=== PATIENT | male | born 1960 | race African-American/Black ===

== ENCOUNTER 2020-02-10 15:34 | Emergency (ER) | payer BC ==
[~2020-02-10] VITALS: Ht 185.4 cm; Wt 95.0 kg
[2020-02-10 16:49] LABS: HEMOGLOBIN. 15.8 g/dL (14.0-18.0); MEAN CORPUSCULAR HEMOGLOBIN 32.1 pg (28.0-32.0); MEAN CORPUSCULAR VOLUME 91.2 fL (80.0-94.0); MEAN PLATELET VOLUME 8.1 fl (7.4-10.4); PLATELET 222 x1000/uL (130-400); RED BLOOD CELL COUNT 4.93 mill/uL (4.7-6.1)
[2020-02-10 16:54] LABS: CHLORIDE 106 mEq/L (98-107)
[2020-02-10 17:03] LABS: PROTHROMBIN TIME 10.5 sec (9.6-11.0)
[2020-02-10 17:19] LABS: CLARITY URINE CLEAR (CLEAR); COLOR URINE DARK YELLOW (YELLOW); KETONES URINE 1+ (NEGATIVE); LEUKOCYTE ESTERASE URINE NEGATIVE (NEGATIVE); NITRITE URINE NEGATIVE (NEGATIVE); OCCULT BLOOD URINE NEGATIVE (NEGATIVE); PH URINE 5.5 (4.5-8.0); PROTEIN URINE TRACE (NEGATIVE); SPECIFIC GRAVITY URINE 1.032 (1.005-1.030)
[2020-02-10 18:21] LABS: PLATELET ESTIMATE NORMAL
[2020-02-10 19:09] VITALS: BP 138/78
== END 2020-02-10 19:09 | disposition home or self-care (01) ==
LOC: ER 15:34
DX: R50.9 Fever, unspecified (principal); K30 Functional dyspepsia; I10 Essential (primary) hypertension
CPT/HCPCS: 36415; 80053; 81003; 85025; 93005; 99284; U0003-CS